=== PATIENT | male | born 1995 | race Caucasian/White ===

== ENCOUNTER → 2021-05-04 00:08 | Outpatient (CLI) | payer OTHER, SELFPAY ==
[2021-05-04 16:46] LABS: SARS-CoV-2 RNA PCR Positive
== END ==
PROVIDERS: PCP Internal Medicine; Visit Provider Physician Assistant
DX: U07.1 COVID-19 (principal)
CPT/HCPCS: C9803; U0003; U0005

== ENCOUNTER 2021-10-14 10:08 | Outpatient (CLI) | payer OTHER, SELFPAY | END 2021-10-14 10:09 | disposition home or self-care (01) | LOC: ANHLAB 10:10 | PROVIDERS: PCP Internal Medicine; Visit Provider Internal Medicine | DX: J02.9 Acute pharyngitis, unspecified (principal) | CPT/HCPCS: 87070 ==

== ENCOUNTER 2022-07-25 11:31 | Emergency (ER) | payer OTHER, SELFPAY ==
[2022-07-25] VITALS (31 sets, daily range): BP systolic 133–150; BP diastolic 74–100; PULSE 73–113; RESP 13–22; TEMP 36.8; O2SAT 96–100
--- NOTE | ~2022-07-25 | XR_ITS ---
EXAMINATION: XR shoulder RT min 2V DATE: 07/25/2022 14:17 INDICATION: Right shoulder pain. TECHNIQUE: 4 views of right shoulder were obtained. COMPARISON: None. FINDINGS: Bone alignment is normal. No fracture. Joint spaces are normal. IMPRESSION: 1. Normal right shoulder. Reviewed, dictated and finalized at location E. IMPRESSION: 1. Normal right shoulder.
--- NOTE | ~2022-07-25 | US_ITS ---
EXAMINATION: US venous doppler UE RT DATE: 07/25/2022 13:27 INDICATION: Swelling and discoloration TECHNIQUE: Barros scale images with and without compression and Doppler images of the right upper extre mity veins were obtained. COMPARISON: None. FINDINGS: The right internal jugular vein, brachial veins, basilic vein, cephalic vein, radial vein, and ulnar vein are patent. There is deep venous thrombosis of the right subclavian and axillary veins. IMPRESSION: 1. Deep venous thrombosis of the right subclavian and axillary veins. Reviewed, dictated and finalized at location B.
[2022-07-25 13:17] LABS: Basophils Percent Auto 0.2 % (0.2-1.2); Eosinophils Percent Auto 0.4 % (0-4.4); Hematocrit 47.4 % (42.0-52.0); Hemoglobin 16.4 g/dL (14.0-18.0); Immature Granulocyte Absolute 0.04 K/mm3 (0.00-0.031); Immature Granulocyte Percent A 0.4 % (0-0.5); Lymphocytes Absolute Auto 1.36 K/mm3 (0.9-3.2); Lymphocytes Percent Auto 13.7 % (18.3-44.2); Mean Corpuscular HGB Conc 34.6 g/dl (32-36); Mean Corpuscular Volume 92.4 fl (80-100); Mean Platelet Volume 10.3 fl (7.4-10.4); Monocytes Absolute Auto 0.8 K/mm3 (0.1-0.6); Monocytes Percent Auto 8.3 % (2.6-8.5); Neutrophils Absolute Auto 7.6 K/mm3 (1.3-6.7); Platelet Count Result 304 k/mm3 (150-375); Red Blood Count 5.13 M/mm3 (4.6-6.20); White Blood Count 9.9 K/mm3 (4.5-10.0)
[2022-07-25 13:20] LABS: Alanine Aminotransferase 67 U/L (6-50); Albumin Level 5.1 g/dL (3.5-5.1); Alkaline Phosphatase 66 U/L (38-126); Anion Gap 9 mmol/L (8-16); Aspartate Amino Transferase 57 U/L (17-59); Bilirubin,Total 0.8 mg/dL (0.2-1.3); Blood Urea Nitrogen 13 mg/dL (9-20); Calcium 9.8 mg/dL (8.4-10.2); Carbon Dioxide 29 mmol/L (22-30); Chloride 102 mmol/L (98-107); Creatine Kinase 294 U/L (55-170); Estimated CRCL calculation 90 ml/min; Estimated Glomerular Filt Rate > 60; Glucose 96 mg/dL (65-110); Potassium 4.6 mmol/L (3.4-5.0); Sodium 140 mmol/L (137-145)
[2022-07-25 13:31] LABS: Partial Thromboplastin Time 29.7 SECONDS (22.3-36.8)
--- NOTE | 2022-07-25 14:16 | ED.UPPEXIN ---
HPI - Extremity Injury (Upper) General Chief Complaint: Extremity Injury, Upper Stated Complaint: right arm pain Time Seen by Provider: 07/25/22 12:08 Source: patient and RN notes reviewed Mode of arrival: ambulatory Limitations: no limitations History of Present Illness HPI narrative: This is a 27 year old male who presents for evaluation of right arm swelling. Patient states yesterday he played golf and he also played in softball game. He noticed during his softball game that his right arm felt tight and swollen. He also noticed bluish discoloration to his right arm. He also has mild right anterior shoulder pain with internal rotation at his shoulder. He also notes tingling to right elbow with internal rotations. He denies history of DVT or PE. He does takes supplementation called Alpha Male that has testosterone in ingredients. Related Data Allergies Allergy/AdvReac Type Severity Reaction Status Date / Time cefprozil Allergy Mild Rash Verified 07/25/22 11:54 Review of Systems Constitutional: Constitutional: Denies weakness Cardiovascular: Cardiovascular: Denies syncope, Denies rapid heart rate, Denies irregular heart rhythm, Denies leg edema and Denies dyspnea Respiratory: Respiratory: Denies chest congestion, Denies hemoptysis, Denies excessive phlegm production and Denies dyspnea Gastrointestinal: Gastrointestinal: Denies abdominal pain, Denies hematochezia, Denies diarrhea and Denies vomiting Genitourinary: Genitourinary: Denies hematuria, Denies dysuria, Denies penile discharge and Denies testicular pain Musculoskeletal: Musculoskeletal: Denies joint swelling, Denies loss of height and Denies muscle weakness Neurologic: Denies syncope, Denies focal weakness, Reports numbness and Denies weakness [facility] Past Medical History Medical History Hx of anxiety disorder Surgical History Surgical History Hx of knee surgery Family History Family History Mother Family history of malignant neoplasm of breast in first degree relative Father Patient's father is Sibling Hypertension Other Diabetes mellitus Social History Social History Smoking status: Never smoker Second hand tobacco smoke exposure: Yes Alcohol intake: current Alcohol use details: social Substance use: never Exam Const: General: no acute distress and alert Nutritional Appearance: well nourished Orientation/consciousness: patient oriented x3 Limitations: no limitations HENMT: Head: normal to inspection Eyes: EOM: EOMs intact bilaterally Neck: Neck: normal visual inspection Chest: Chest palpation & inspection: normal inspection of the chest Resp: Effort & Inspection: normal respiratory effort Auscultation: clear to auscultation bilaterally Cardio: Rate: regular rate Rhythm: regular rhythm Heart sounds: no murmurs GI: GI Palp: Yes Soft to palpation, No Tenderness to palpation present (GI), No Guarding due to palpation present (GI) and No Rigid due to palpation Skin: Rashes: no rashes Wounds: no wounds Other: right upper extremity appears to have purplish discoloration compared to left; strong palpable radial pulse Neuro: General: patient oriented x3, moves all extremities and CN's II-XI intact bilaterally Extrem: Other: seek skin Psych: Mental Status: mental status grossly normal Affect: normal affect Attitude: cooperative Course Reevaluation(s) Reevaluation #1: I discussed with patient that he has been accepted to [facility]. I explained concern is the tingling that he has in his arm and discoloration so he needs vascular surgery evaluation . He agrees to transfer. Date: 07/25/22 Time: 14:45 Consultations Consultation #1: I spoke with Dr. Alvarado of vascular s
[2022-07-25] MEDS: ENOXAPARIN 100 MG/ML SYRINGE 90 MG SUB-Q (14:45)
--- NOTE | 2022-07-25 16:32 | PC.NURSE ---
pt accepted at [facility] placed on bed waitlist
--- NOTE | 2022-07-25 16:34 | PC.NURSE ---
spoke to [facility] transfer line, states no bed at this time. goal is to have a bed this evening or early in the morning. patient may eat per access line. Dr. Luis aware and ok for patient to eat. updated patient and family
--- NOTE | 2022-07-25 17:30 | PC.NURSE ---
patient c/o headache. provider aware. new orders received
[2022-07-25] MEDS: ACETAMINOPHEN 500 MG TABLET 1000 MG PO (17:43)
[2022-07-25] MEDS: ENOXAPARIN 100 MG/ML SYRINGE 87 MG SUB-Q (23:55)
[2022-07-26] VITALS (20 sets, daily range): BP systolic 130–140; BP diastolic 80–88; PULSE 62–98; RESP 11–19; O2SAT 95–100
== END 2022-07-26 11:55 | disposition short-term general hospital (02) ==
PROVIDERS: Emergency Provider General Practice; PCP Internal Medicine
DX: I82.621 Acute embolism and thrombosis of deep veins of right upper extremity (principal)
CPT/HCPCS: 36415; 73030; 80053; 82550; 85025; 85610; 85730; 93971; 96372; 99285; A9270; J1650

== ENCOUNTER 2022-12-10 08:15 | Outpatient (RCR) | payer OTHER, SELFPAY ==
--- NOTE | 2022-11-12 13:53 | PTOPEVAL1 ---
Assessment and note entered by Teofilo Norris Evaluation Information Assessment Status Evaluation Diagnosis thoracic outlet syndrome Subjective Information Pt. reports that he underwent surgery 09/12/22 for TOS. He reports that he did have immediate relief following surgery. He states that he still has a sense of tightness in the right shoulder. He states that he is on a 25# weight restriction. He reports that he has been informed to begin working out again, but to avoid chest exercise. 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 He states that he still has some numbness in the front of the right shoulder. He is right hand dominant. Pt. reprts that his goal is to regain normal right shoulder mobility and strength and return to duties as a police communications dispatcher. Reported Pain Level Pain Score 3: Self Report Assessment PT Clinical Summary Pt. is a 27 year old male who enters the clinic post removal of the first rib to address thoracic outlet syndrome. Pt. currently presents with u.e. weakness, impaired c-spine and u.e. ROM, impaired postural awareness and mild pain. He is currently limited to a 25# weight restriction. Continued skilled PT is indicated in order to improve these areas to allow the pt. to achieve his goal of returning to all work related duties. Plan of Care Interventions Electrical Stimulation,Hot Pack/Cold Pack,Manual Therapy,Neuro Re-education,Patient/Caregiver Educati,Therapeutic Activities,Therapeutic Exercise,Self-Care/Home Management PT Services Indicated Yes Treatment Frequency and 1x/week x 4 visits Duration These treatments will address the objective and functional deficits as defined above. The patient will be advanced safely and appropriately in order for the patient to progress towards his/her prior level of function. Additional exercises will be introduced and as well as a comprehensive home exercise program upon discharge, if needed, ?to ensure carryover of functional gains achieved in the clinic. This treatment plan has been reviewed and agreement upon by the patient.
--- NOTE | 2022-11-12 13:54 | OPREHPOC ---
Outpatient Therapy Plan of Care This is a Multidisciplinary Plan of Care that may contain components documented by all disciplines (PT, OT, and ST.) PT Problem 1 PT Problem #1 Knowledge Deficit PT Goal 1 Goal Independent with a HEP addressing ROM and strength . Target Visit 2 PT Problem 2 PT Problem #2 Impaired Strength PT Goal 1 Goal Pt. will present with 5/5 proximal right u.e. strength Target Visit 4 PT Problem 3 PT Problem #3 Impaired Range of Motion PT Goal 1 Goal Pt. will demonstrate 170 degees right shoulder flexion, 100 degrees right shoulder ER and 80 degrees right shoulder IR to assist with ease of completing IADL's. Target Visit 4 PT Problem 4 PT Problem #4 Impaired Functional Mobil PT Goal 1 Goal Pt. will to appropriate to return to all work related duties without restriction.
--- NOTE | 2022-12-10 09:08 | PTOPDC ---
Assessment and note entered by Toefilo Norris Evaluation Information Assessment Status Discharge Diagnosis thoracic outlet syndrome Subjective Information Pt. reports that pain is mild. He reports pain levels have been a 2/10 at worst, but he is pain free the majority of the time. He reports that he has been in the weight room doing resistive activity for the legs and light weight for the biceps and triceps. He still would like to be able to return to golf and anticipates that the doctor will let him after his next visit. Reported Pain Level Pain Score 0: Self Report Assessment PT Clinical Summary Pt. has met the majority of goals. He demonstrates no functional deficits and presents with normal strength and ROM on this date. At this time pt. has a comprehensive HEP. He returns to the doctor in less than 2 weeks. Anticipate pt. being released to no weight restriction and informed the pt. on how to transition back to u.e. resistive exercise in the weight room. He will be discharged from our care at this time. Plan of Care PT Services Indicated Yes
== END 2022-12-10 13:49 | disposition home or self-care (01) ==
LOC: ANHPT 08:15
PROVIDERS: PCP Internal Medicine
DX: G54.0 Brachial plexus disorders (principal)
CPT/HCPCS: 97110; 97112; 97140; 97161

== ENCOUNTER 2024-07-22 10:45 | Emergency (ER) | payer OTHER, SELFPAY ==
--- NOTE | ~2024-07-22 | XR_ITS ---
EXAMINATION: XR finger 4th RT min 2V DATE: 07/22/2024 11:01 INDICATION: Right fourth finger injury TECHNIQUE: Dorsal palmar, lateral and 2 oblique views of the right fourth digit were obtained COMPARISON: None FINDINGS: Mallet finger deformity of the right fourth digit with persistent flexion at the distal interphalange al joint. Alignment is otherwise normal. No fracture. Joint spaces are normal. IMPRESSION: 1. Mallet finger deformity of the fourth digit. No fracture. Reviewed, dictated and finalized at location A.
[2024-07-22 10:48] VITALS: BP 158/96; PULSE 102; RESP 18; TEMP 36.7; O2SAT 100
--- NOTE | 2024-07-22 10:55 | ED_ITS ---
HPI - Extremity Injury (Upper) General Chief Complaint: Extremity Injury, Upper Stated Complaint: finger injury Source: patient Mode of arrival: EMS Limitations: no limitations History of Present Illness HPI narrative: This is a 29 year old male that presents to the ER for right 4th finger injury. Reports he was apprehending a suspect and injured his finger. Reports decreased ROM in the right 4th finger DIP joint. Denies numbness. Related Data Home Medications ?Medication ?Instructions ?Recorded ?Confirmed ?Last Taken ?Type doxycycline hyclate 50 mg capsule 50 mg PO DAILY 02/18/24 Unknown History Allergies Allergy/AdvReac Type Severity Reaction Status Date / Time cefprozil Allergy Mild Rash Verified 07/22/24 10:47 Review of Systems Review of Systems: CONSTITUTIONAL: Denies fever MUSCULOSKELETAL: Reports joint pain, and myalgia. NEUROLOGIC: Denies numbness All systems reviewed & are unremarkable except as noted in HPI and below PMFSH Past Medical History Medical History (Updated 07/22/24 @ 11:40 by Hannah Cazares PA-C) Thoracic outlet syndrome Esophageal reflux disease Hx of anxiety disorder Surgical History Surgical History Hx of knee surgery Family History Family History Mother Family history of malignant neoplasm of breast in first degree relative Father Patient's father is Sibling Hypertension Other Diabetes mellitus Social History Social History (Updated 02/18/24 @ 09:38 by Antwon Caraballo APRN) Smoking status: Never smoker Second hand tobacco smoke exposure: Yes Alcohol intake: current Alcohol use details: social Substance use: never Living arrangements: with roommate(s) Occupation/Education: occupation Additional occupation/education comments: [place] [employer] Gender identity (if verbalized by the patient): Male Sexual Orientation (if Verbalized by the Patient): Straight or Heterosexual Exam Narrative: GENERAL: Well-appearing, well-nourished, and in no acute distress. HEAD: Normocephalic, atraumatic. EYES: EOMI. EXTREMITIES: Decreased active range of motion in the right 4th finger DIP joint. Normal radial pulse. Normal sensation SKIN: Warm, dry, no rash. NEURO: No focal deficits. Alert and oriented x3. PSYCH: Normal mood and affect Course Vital Signs Vital signs: Vital Signs Temperature 98.1 F 07/22/24 10:48 Pulse Rate 102 H 07/22/24 10:48 Respiratory Rate 18 07/22/24 10:48 Blood Pressure 158/96 H 07/22/24 10:48 Pulse Oximetry 100 07/22/24 10:48 Oxygen Delivery Room Air 07/22/24 10:48 Temperature 98.1 F 07/22/24 10:48 Pulse Rate 102 H 07/22/24 10:48 Respiratory Rate 18 07/22/24 10:48 Blood Pressure 158/96 H 07/22/24 10:48 Pulse Oximetry 100 07/22/24 10:48 Oxygen Delivery Room Air 07/22/24 10:48 Procedures Orthopedic Splinting/Casting Injury #1: Splinting/Casting Date: 07/22/24 Splinting/Casting Time: 11:38 Side: right Upper Extremity Injury Location: finger Upper Extremity Immobilizer: finger (other) Splint: prefabricated Pre-Formed: metal foam finger splint Pre-Procedure Neuro Vascular Exam: normal Post-Procedure Neuro Vascular Exam: normal MDM - Extremity Injury (Upper) MDM Narrative Medical decision making narrative: Patient presents to the emergency department for right 4th finger injury. He is neurovascularly intact. X-ray shows a mallet finger deformity. Patient placed in a splint. Will be given follow-up with Hand surgery. He was given warnings to return to the ER Differential Diagnosis Differential diagnosis: Likely finger sprain, dislocation of finger and other (Finger fracture) Imaging Data Radiologist's impression: ITS Impressions Finger X-Ray 07/22/24 11:19 IMPRESSION: 1. Mallet finger deformity of the fourth digit. No fracture. Critical Care Time Critical Care Time Critical Care Time: No Discharge Plan Discharge Clinical Impression: Mallet deformity of right ring finger Patient Disposition: Home Condition: Stable Instructions: Jammed Finger (ED) Additional Instructions: Return to the ER if you experience fever, redness and swelling of your arm, weakness, numbness, or any other symptoms that are concerning to you Rest, use ice/heat, take anti-inflammatories (Aleve, Ibuprofen, Naproxen, etc) or Tylenol as needed for pain. Wear your splint Follow up with hand surgery Patient Language: Jamaican Prescriptions: No Action doxycycline hyclate 50 mg capsule 50 mg PO DAILY omeprazole 20 mg capsule,delayed release(DR/EC) 20 mg PO DAILY Qty: 90 1RF venlafaxine 37.5 mg capsule,extended release 24hr 37.5 mg PO DAILY Qty: 90 1RF (DME) Monoject Safety Syringes 3 mL 21 gauge x 1 1/2 syringe See Rx Instructions .Route Qty: 15 2RF Rx Instructions: Use for testosterone injections Viberzi 100 mg tablet 100 mg PO BID Qty: 60 3RF Rx Instructions: must administer with a meal/food testosterone cypionate [Depo-Testosterone] 200 mg/mL oil 200 mg IM .every two weeks Qty: 10 0RF Rx Instructions: as a single dose Follow-up/Referrals: Avila Crook MD [Physician] - Maggie,Bryn Tiwari DO [Primary Care Provider] -
--- OUTSIDE RECORDS SUMMARY | 2024-07-22 11:47 | XMS_ITS | Encounter Summary ---
Author Organization [facility] Healthcare Address [address] [place] [address] Care Team Providers Care Production Control Supervisor Name Role Phone Angel Luis Alvarado MD Unavailable [phone] Maikel Plata DPT Unavailable [phone] Unknown, Notinfile Primary Care Provider Unavail able Encounter Details Date Type Department Care Team (Late st Contact Info) Description 05/02/2024 Telephone [facility] Radiology [address] [place] [address] Karen Hillman RN Social History Tobacco Use Types Packs/Day Years Used Date Smoking Tobacco: Never Passive Smoke Exposure: Never Smokeless Tobacco: Former Chew Quit: 2020 AUDIT-C Answer Date Recorded Q1: How often do you have a drink containing alc ohol? 2-4 times a month 05/06/2024 Q2: How many drinks containi ng alcohol do you have on a typical day when you are drinking? 1 or 2 05/06/2024 Q3: How often do you have si x or more drinks on one occasion? Never 05/06/2024 Personal Safety Answer Date Recorded Have you ever been in or are you currently in a harmful physical or emotional relationship or is someone making you feel afraid or unsafe? Denies 05/06/2024 Sex and Gender Information Value Date Recorded Sex Assigned at Not on file Legal Sex Male 1:28 AM [employer]POR[employer] Gender Identity Not on file Sexual Orientation Not on file documented as of this encounter Plan of Treatment Not on file documented as of this encounter Visit Diagnoses Not on filedocumented in this encounter Care Teams Production Control Supervisor Relationship Specialty Start Date End Date Unknown, Notinfile PCP - General 04/20/24 Angel Luis Alvarado MD [id number] [place] [address] Surgeon Vascular Surgery 07/29/22 Maikel Plata DPT [address] [facility] [address] [place] [address] Physical Therapist Physical Therapy 11/09/22 documented as of this encounter
--- OUTSIDE RECORDS SUMMARY | 2024-07-22 11:47 | XMS_ITS | Referral Summary ---
Author Organization [facility] Address [address] [place] [address] Care Team Providers Care Activities Aide Name Role Phone Angel Luis Alvarado MD Unavailable [phone] Maikel Plata DPT Unavailable [phone] Unknown, Notinfile Primary Care Provider Unavail able Encounters Date Type Department Care Team Description 07/18/2024 Orders Only [facility]iology [address] [place] [address] Tammi Ledbetter, SAYRA 07/18/2024 Orders Only [facility] [address] [place] [address] Tammi Ledbetter, SAYRA 07/15/2024 Telephone [facility] [address] [place] [address] Tammi Ledbetter, SAYRA 07/15/2024 Orders Only [facility] [address] [place] [address] Tammi Ledbetter, SAYRA 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 (Primary Dx) 06/01/2024 Telephone [facility] [address] [place] [address] Tammi Ledbetter, SAYRA 05/12/2024 Orders Only [facility] [address] [place] [address] Tammi Ledbetter, SAYRA 05/12/2024 Telephone [facility] [address] [place] [address] Tammi Ledbetter, SAYRA 05/09/2024 Telephone [facility] Radiology, Interventional Radiology [address] [facility] [address] [place] [address] Fifi Contreras, SAYRA Follow-up 05/06/2024 6:19 AM SHARE DAIRY FARMER - 05/06/2024 11:59 PM SHARE DAIRY FARMER Hospital Encounter [facility]iology [address] [place] [address] Raul Lara MD Karanikolas, Menelaos, MD Finders, James Kristopher, CRNA TOS (thoracic outlet syndrome) Discharge Disposition: Discharge to home or self care 05/06/2024 7:45 AM SHARE DAIRY FARMER Anesthesia Event [facility] [address] [place] [address] Abby Bowman MD McGowan, Jessica Lynn, DEBBIE 05/04/2024 Telephone [facility] [address] [place] [address] Damaso Hummel, SAYRA 05/04/2024 Telephone [facility] [address] [place] [address] Damaso Hummel, SAYRA 05/02/2024 Telephone [facility] [address] [place] [address] Karen Hillman, SAYRA 04/27/2024 10:00 AM SHARE DAIRY FARMER Pre-Admission Testing [facility]) [address] [place] [id number] 04/26/2024 Telephone [facility] [address] [place] [id number] Tammi Ledbetter RN from Last 3 Months Allergies Active Allergy Reactions Criticality Noted Date Comments Cefprozil Rash Medium 07/28/2022 Per pt reaction as a child Medications venlafaxine (EFFEXOR) 37.5 mg tabletIndicatio ns:Generalized Anxiety Disorder Take 1 tablet (37.5 mg total) by mouth every morning Active omeprazole (PriLOSEC) 20 mg capsuleIndicati ons:Treatment of Non-Bleeding Gastric Disorder Take 1 capsule (20 mg total) by mouth every morning Active ibuprofen 200 mg tab/capIndicati ons:Anti-inflam matory Take 2 tablet/capsule (400 mg total) by mouth every 6 (six) hours as needed for pain Active multivitamin capsuleIndicati ons:Vitamin Deficiency Prevention Take 1 capsule by mouth daily before breakfast Active cetirizine (ZyrTEC) 10 mg tabletIndicatio ns:Seasonal Allergic Rhinitis Take 1 tablet (10 mg total) by mouth every morning Active cyanocobalamin, vitamin B-12, (VITAMIN B-12 ORAL)Indication s:supplement Take 1 tablet by mouth every morning Active eluxadoline (VIBERZI) 100 mg tabletIndicatio ns:Diarrhea Predominant Irritable Bowel Syndrome Take 1 tablet (100 mg total) by mouth 2 (two) times a day Active doxycycline hyclate (VIBRAMYCIN) 50 mg capsuleIndicati ons:Other (complete free text reason below),dry eye/infection Take 1 capsule (50 mg total) by mouth 2 (two) times a day Active testosterone cypionate (DEPO-TESTOTERO NE) 200 mg/mL injectionIndica tions:hrt Inject 1 mL (200 mg total) into the muscle as instructed every 14 (fourteen) days 5 Active clopidogreL (PLAVIX) 75 mg tablet Take 1 tablet (75 mg total) by mouth daily 30 tablet 11 5 07/19/19 26 Active apixaban (ELIQUIS) 5 mg tablet Take 1 tablet (5 mg total) by mouth 2 (two) times a day 60 tablet 3 5 07/19/19 25 Discontin ued(Alter keegan therapy) Active Problems Problem Noted Date Diagnosed Date TOS (thoracic outlet syndrome) 01/06/2023 Tachycardia 09/13/2022 Assessment & Plan (09/15/2022 6:31 AM CDT): - Noted during OR case and post-op - Resolved w/ IVF Thoracic outlet syndrome 09/12/2022 Anxiety 07/26/2022 Overview (07/26/2022): -Re-start home venlafaxine Assessment & Plan (09/12/2022 8:11 AM CDT): - continue home meds as able Assessment & Plan (07/26/2022 2:15 PM CDT): -Restart home venlafaxine GERD (gastroesophageal reflux disease) Overview (07/26/2022): -Restart home omeprazole Assessment & Plan (09/12/2022 8:11 AM CDT): - Continue home medications Assessment & Plan (07/26/2022 2:15 PM CDT): -Restart home omeprazole Venous thoracic outlet syndrome of right subclav denise vein 07/25/2022 Assessment & Plan (09/15/2022 6:30 AM CDT): - 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 S/p nutrition consult for diet instructions. - Heparin per protocol POD3, eventually home NOAC as surgical recovery permits Assessment & Plan (07/29/2022 5:53 AM CDT): Presented to OSH with right arm tightness, swelling and discoloration. Also noted tingling from wrist down. Palpable pulse. Ultrasound positive for right axially and subclavian DVT. - 07/28 ultrasound confirmed Acute deep vein thrombosis in the right upper extremity. - IR consult for thrombectomy +/- lysis. - To IR suite 07/28 for RUE venogram with thrombectomy and thrombolysis - Continue therapeutic anticoagulation (heparin gtt). Ponce check NOACs. Xarelto PA obtained. - NV exam. - Elevate right arm. Social History Tobacco Use Types Packs/Day Years Used Date Smoking Tobacco: Never Passive Smoke Exposure: Never Smokeless Tobacco: Former Chew Quit: 2019 Tobacco Cessation:Counseling Given: Not Answered AUDIT-C Answer Date Recorded Q1: How often [...] on file Legal Sex Male 1:28 AM SHARE DAIRY FARMER Gender Identity Not on file Sexual Orientation Not on file Last Filed Vital Signs Vital Sign Reading Time Taken Comments Blood Pressure 109/71 05/06/2024 11:00 AM SHARE DAIRY FARMER Pulse 82 05/06/2024 11:05 AM SHARE DAIRY FARMER Temperature 36.1 C (97 F) 05/06/2024 11:00 AM SHARE DAIRY FARMER Respiratory Rate 13 05/06/2024 11:05 AM SHARE DAIRY FARMER Oxygen Saturation 100% 05/06/2024 11:05 AM SHARE DAIRY FARMER Inhaled Oxygen Concentration - - Weight 93 kg (205 lb) 05/06/2024 6:40 AM SHARE DAIRY FARMER Height 182.9 cm (6') 05/06/2024 6:40 AM SHARE DAIRY FARMER Body Mass Index 27.8 05/06/2024 6:40 AM SHARE DAIRY FARMER Plan of Treatment Not on file Procedures Procedure Name Priority Date/Time Associated Diagnosis Comments VENOGRAM UPPER EXTREMITY RIGHT Schedule Routine, Read Routine (OP Routine) 05/06/2024 10:11 AM SHARE DAIRY FARMER TOS (thoracic outlet syndrome) IN AN PROCEDURE PLACEHOLDER Routine 05/06/2024 8:18 AM SHARE DAIRY FARMER IN AN ELECTIVE ENDOTRACHEAL AIRWAY Routine 05/06/2024 8:18 AM SHARE DAIRY FARMER from Last 3 Months Results * IR Venogram Upper Extremity Right (05/06/2024 10:11 AM SHARE DAIRY FARMER) Anatomical Region Laterality Modality Extremity Right X-Ray Angiograph y 05/06/2024 1:39 PM SHARE DAIRY FARMER Impressions 05/06/2024 2:22 PM SHARE DAIRY FARMER Occluded right axillary and subclavian veins successfully treated with balloon venoplasty with significant improvement. PLAN: The patient will resume home Lovenox for the following week and will be reevaluated for transition Eliquis. He will follow-up with interventional radiology clinic in 3 months. Dictated by: Syed Stanton M.D. The radiology attending physician has personally reviewed this study, and had reviewed and/or edited this written report and agrees with it. Electronically signed by: Raul Lara M.D. Narrative 05/06/2024 2:22 PM SHARE DAIRY FARMER EXAMINATION: 1. ULTRASOUND-GUIDED RIGHT BASILIC VEIN ACCESS. 2. RIGHT UPPER EXTREMITY AND CENTRAL VENOGRAM. 3. RIGHT UPPER EXTREMITY AND CENTRAL BALLOON VENOPLASTY. 4. RIGHT SUBCLAVIAN VEIN DRUG COATED BALLOON VENOPLASTY. HISTORY/INDICATION: 29 year old male with venous thoracic outlet syndrome status post decompression 09/12/2022 (including anterior/middle scalenectomy, brachial plexus neurolysis, first rib resection). He underwent several post-decompression venograms with balloon angioplasty and drug coated balloon angioplasty. 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 ATTENDING PRESENCE: Raul Lara M.D., the attending interventional radiologist was present from the beginning to the end of the procedure. SEDATION: The procedure was done under general anesthesia. TECHNIQUE: The risks, benefits and alternatives were discussed and informed consent was obtained. Prior to beginning the procedure, [place] Protocol was performed to confirm the patient's identity and the planned procedure. For procedures that utilize fluoroscopy, the fluoroscopy time has been recorded in the electronic medical record. Maximum sterile barriers including cap, mask, hand hygiene, sterile gloves, sterile gown, large sterile drape and 2% chlorhexidine for cutaneous antisepsis were used. The skin over the right neck and groin was sterilely prepped, draped and infiltrated with 1% lidocaine. Prior to the procedure, the right basilic vein was evaluated by ultrasound, an image of the vessel recorded, and this image placed in the patient's chart. The vessel was occluded prior to the procedure. After sterile prep, this vessel was accessed using realtime ultrasound guidance. A 6-Scottish vascular sheath was placed and a venogram was performed. The chronically occluded right axillary and subclavian vein was traversed with a Glidewire and Kumpe catheter and positioned in the superior vena cava. The wire was removed and a venogram was performed. The catheter was exchanged over the wire for an 8 mm plain balloon. Balloon venoplasty of the right axillary, subclavian, and brachiocephalic veins was performed using an 8, 10, and 12 mm balloon. Drug coated balloon angioplasty of the right subclavian vein was performed with a 12 mm Lutonix balloon. Post-intervention venography was performed. All wires, catheters, and sheaths were removed. Hemostasis was achieved with manual compression. The skin dermatotomy was closed with sutures and Dermabond. A sterile dressing was applied. ESTIMATED BLOOD LOSS: Minimal. COMPLICATIONS: None. CONDITION: Stable. DISCHARGED TO: Outpatient recovery then home. FINDINGS: Initial ultrasound images demonstrate an occluded right basilic vein. Initial venography demonstrates an occluded right axillary and subclavian vein with filling of numerous venous collaterals and a prominent venous collateral descending caudally along the right chest wall, draining into the superior vena cava. Images that follow demonstrate traversal of a guidewire and catheter across the occluded right axillary and subclavian veins with serial balloon venoplasty of these veins. Final post-intervention venography demonstrates brisk in-line flow of contrast through the right axillary, subclavian, and brachiocephalic veins with emptying into the superior vena cava. There is significantly improved caliber of these veins and decreased filling of the previously seen venous collaterals. Procedure Note Raul Lara MD - 05/06/2024 EXAMINATION: 1. ULTRASOUND-GUIDED RIGHT BASILIC VEIN ACCESS. 2. RIGHT UPPER EXTREMITY AND CENTRAL VENOGRAM. 3. RIGHT UPPER EXTREMITY AND CENTRAL BALLOON VENOPLASTY. 4. RIGHT SUBCLAVIAN VEIN DRUG COATED BALLOON VENOPLASTY. HISTORY/INDICATION: 29 year old male with venous thoracic outlet syndrome status post decompression 09/12/2022 (including anterior/middle scalenectomy, brachial plexus neurolysis, first rib resection). He underwent several post-decompression venograms with balloon angioplasty and drug coated balloon angioplasty. 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 ATTENDING PRESENCE: Raul Lara M.D., the attending interventional radiologist was present from the beginning to the end of the procedure. SEDATION: The procedure was done under general anesthesia. TECHNIQUE: The risks, benefits and alternatives were discussed and informed consent was obtained. Prior to beginning the procedure, [place] Protocol was performed to confirm the patient's identity and the planned procedure. For procedures that utilize fluoroscopy, the fluoroscopy time has been recorded in the electronic medical record. Maximum sterile barriers including cap, mask, hand hygiene, sterile gloves, sterile gown, large sterile drape and 2% chlorhexidine for cutaneous antisepsis were used. The skin over the right neck and groin was sterilely prepped, draped and infiltrated with 1% lidocaine. Prior to the procedure, the right basilic vein was evaluated by ultrasound, an image of the vessel recorded, and this image placed in the patient's chart. The vessel was occluded prior to the procedure. After sterile prep, this vessel was accessed using realtime ultrasound guidance. A 6-Scottish vascular sheath was placed and a venogram was performed. The chronically occluded right axillary and subclavian vein was traversed with a Glidewire and Kumpe catheter and positioned in the superior vena cava. The wire was removed and a venogram was performed. The catheter was exchanged over the wire for an 8 mm plain balloon. Balloon venoplasty of the right axillary, subclavian, and brachiocephalic veins was performed using an 8, 10, and 12 mm balloon. Drug coated balloon angioplasty of the right subclavian vein was performed with a 12 mm Lutonix balloon. Post-intervention venography was performed. All wires, catheters, and sheaths were removed. Hemostasis was achieved with manual compression. The skin dermatotomy was closed with sutures and Dermabond. A sterile dressing was applied. ESTIMATED BLOOD LOSS: Minimal. COMPLICATIONS: None. CONDITION: Stable. DISCHARGED TO: Outpatient recovery then home. FINDINGS: Initial ultrasound images demonstrate an occluded right basilic vein. Initial venography demonstrates an occluded right axillary and subclavian vein with filling of numerous venous collaterals and a prominent venous collateral descending caudally along the right chest wall, draining into the superior vena cava. Images that follow demonstrate traversal of a guidewire and catheter across the occluded right axillary and subclavian veins with serial balloon venoplasty of these veins. Final post-intervention venography demonstrates brisk in-line flow of contrast through the right axillary, subclavian, and brachiocephalic veins with emptying into the superior vena cava. There is significantly improved caliber of these veins and decreased filling of the previously seen venous collaterals. IMPRESSION: Occluded right axillary and subclavian veins successfully treated with balloon venoplasty with significant improvement. PLAN: The patient will resume home Lovenox for the following week and will be reevaluated for transition Eliquis. He will follow-up with interventional radiology clinic in 3 months. Dictated by: Syed Stanton M.D. The radiology attending physician has personally reviewed this study, and had reviewed and/or edited this written report and agrees with it. Electronically signed by: Raul Lara M.D. us Raul Lara MD IMG IR PROCEDURES Final Re sult * IN AN ELECTIVE ENDOTRACHEAL AIRWAY, IN AN PROCEDURE PLACEHOLDER (05/06/2024 8:18 AM SHARE DAIRY FARMER) Narrative Eduin Bill CRNA - 05/06/2024 8:18 AM SHARE DAIRY FARMER Eduin Bill CRNA 05/06/2024 8:19 AM Airway Patient location: OR Urgency: elective Date/time: 05/06/2024 8:06 AM Indications for airway management: anesthesia Difficult airway: no Staff: Supervising provider: Abby Bowman MD Placed by: LOCUM TENENS PSYCHIATRIST: Eduin Bill CRNA Emergent airway documentation: Risks and benefits discussed: yes Consent obtained: yes Consent given by: patient Airway prep: Preoxygenated: yes Patient position: reverse Trendelenburg Mask difficulty assessment: 0 - not attempted Spontaneous ventilation during airway: absent Sedation level during airway: GA Final airway details: Final airway type: endotracheal airway Tube type: ETT ETT size: 8.0 mm Cuffed: yes Technique used for successful ETT placement: video laryngoscopy Devices/Methods used in placement: stylet Insertion site: oral Video blade type: Coleman Blade size: 3 Cormack-Lehane (video): grade I - full view of glottis Initial cuff pressure: 26 cm H2O Cuff volume: 8 mL Cuff inflated with: air ETT to lips: 24 cm Placement verified by: auscultation and CO2 detection Airway secured with: silk tape Number of attempts: 1 Abby Bowman MD ANESTHESIA ORDERABLES Fi nal Result from Last 3 Months Insurance [facility] Address: [place] [address] [facility] Address: [place] [address] [facility] Address: [facility] [address] [place] [address] Advance Directives For more information, please contact: [phone] * Full Code (Latest Code Status on File) Date Activated Date Inactivated Comments 05/06/2024 6:37 AM 05/07/2024 4:45 AM * Full Code Date Activated Date Inactivated Comments 09/12/2022 9:49 PM 09/16/2022 5:04 PM * Full Code Date Activated Date Inactivated Comments 07/26/2022 1:27 PM 07/29/2022 5:50 PM Care Teams Activities Aide Relationship Specialty Start Date End Date Unknown, Notinfile PCP - General 04/20/24 Angel Luis Alvarado MD [id number] [place] [address] Surgeon Vascular Surgery 07/29/22 Maikel Plata DPT [address] [address] Physical Therapist Physical Therapy 11/09/22
--- OUTSIDE RECORDS SUMMARY | 2024-07-22 11:47 | XMS_ITS | Encounter Summary ---
Author Organization 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 2-4 times a month 05/06/2024 6:38 AM Giovanna Scott RN Q2: How many drinks containing alcohol do you have on a typical day when you are drinking? 1 or 2 05/06/2024 6:38 AM Giovanna Scott RN Q3: How often do you have six or more drinks on one occasion? Never 05/06/2024 6:38 AM Giovanna Scott RN documented as of this encounter Miscellaneous Notes * Telephone Encounter - Damaso Hummel RN - 05/04/2024 11:37 AM COMPOUNDING TECHNICIAN OUNDING TECHNICIAN documented in this encounter Plan of Treatment Not on file documented as of this encounter Visit Diagnoses Not on filedocumented in this encounter Care Teams Professor Of Literacy Relationship Specialty Start Date End Date Unknown, Notinfile PCP - General 04/20/24 Angel Luis Alvarado MD [id number] [place] [address] Surgeon Vascular Surgery 07/29/22 Maikel Plata DPT [id number] [address] Physical Therapist Physical Therapy 11/09/22 documented as of this encounter
--- OUTSIDE RECORDS SUMMARY | 2024-07-22 11:47 | XMS_ITS | Clinical Summary ---
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 - Elevate right arm. Encounters Date Type Department Care Team Description 07/18/2024 Orders Only [facility] Radiology [address] [place] [address] Tammi Ledbetter RN 07/18/2024 Orders Only [facility] [address] [place] [address] Tammi Ledbetter RN 07/15/2024 Telephone [facility] [address] [place] [address] Tammi Ledbetter RN 07/15/2024 Orders Only [facility] [address] [place] [address] Tammi Ledbetter, SAYRA 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 (Primary Dx) 06/01/2024 Telephone [facility] [address] [place] [address] Tammi Ledbetter RN 05/12/2024 Orders Only [facility] [address] [place] [address] Tammi Ledbetter, SAYRA 05/12/2024 Telephone [facility] [address] [place] [address] Tammi Ledbetter, SAYRA 05/09/2024 Telephone [facility] Radiology, Interventional Radiology [address] [place] [address] Fifi Contreras, SAYRA Follow-up 05/06/2024 7:45 AM SOFTWARE DEVELOPER INTERN Anesthesia Event [facility] [address] [place] [id number] Abby Bowman MD McGowan, Giovanna Mendiola NP 05/06/2024 6:19 AM SOFTWARE DEVELOPER INTERN - 05/06/2024 11:59 PM SOFTWARE DEVELOPER INTERN Hospital Encounter [facility] [address] [place] [phone] Raul Lara MD Karanikolas, Menelaos, MD Finders, James Kristopher, CRNA TOS (thoracic outlet syndrome) Discharge Disposition: Discharge to home or self care 05/04/2024 Telephone [facility] [address] [place] [phone] Damaso Hummel, SAYRA 05/04/2024 Telephone [facility] [address] [place] [phone] Damaso Hummel, SAYRA 05/02/2024 Telephone [facility] [address] [place] [id number] Karen Hillman, SAYRA 04/27/2024 10:00 AM SOFTWARE DEVELOPER INTERN Pre-Admission Testing [facility] [address] [place] [id number] 04/26/2024 Telephone [facility] [address] [place] [id number] Tammi Ledbetter RN from Last 3 Months Surgical History Surgery Date Site/Laterality Comments SKIN GRAFT 03/16/2000 - 03/15/2001 Right Right shoulder 2/2 espinosa WISDOM TOOTH EXTRACTION 03/16/2016 - 03/15/2017 ABCESS DRAINAGE 03/16/2001 - 03/15/2002 Right VENOUS THROMBECTOMY 07/28/2022 Right THORACIC OUTLET SURGERY 09/12/2022 Right OTHER SURGICAL HISTORY 12/25/2022 Right venogram, angioplasty-venoplasty subclavian Medical History Medical History Date Comments Thoracic outlet syndrome Right V enous Thoracic outlet syndrome s/p thrombectomy 07/28/2022 History of DVT (deep vein thrombosis) 07/2022 DVT in the right subclavian and axillary veins s/p thrombectomy 07/28/2022 Family History Medical History Relation Name Comments PONV Mother Relation Name Status Comments Mother Social History Tobacco Use Types Packs/Day Years [...] on file Legal Sex Male 1:28 AM SOFTWARE DEVELOPER INTERN Gender Identity Not on file Sexual Orientation Not on file Obstetrics History Last Filed Vital Signs Vital Sign Reading Time Taken Comments Blood Pressure 109/71 05/06/2024 11:00 AM SOFTWARE DEVELOPER INTERN Pulse 82 05/06/2024 11:05 AM SOFTWARE DEVELOPER INTERN Temperature 36.1 C (97 F) 05/06/2024 11:00 AM SOFTWARE DEVELOPER INTERN Respiratory Rate 13 05/06/2024 11:05 AM SOFTWARE DEVELOPER INTERN Oxygen Saturation 100% 05/06/2024 11:05 AM SOFTWARE DEVELOPER INTERN Inhaled Oxygen Concentration - - Weight 93 kg (205 lb) 05/06/2024 6:40 AM SOFTWARE DEVELOPER INTERN Height 182.9 cm (6') 05/06/2024 6:40 AM SOFTWARE DEVELOPER INTERN Body Mass Index 27.8 05/06/2024 6:40 AM SOFTWARE DEVELOPER INTERN Plan of Treatment Health Maintenance Due Date Last Done Comments Depression Screening 1994 Hepatitis C Screening 1994 DTaP/Tdap/Td Vaccine (1 - Tdap) 2005 Varicella Vaccines (1 of 2 - 13+ 2-dose series) 2007 Hepatitis B Screening 2012 Regular Well Visit/Exam 18-64 2012 Influenza Vaccine (Season Ended) 2024 HPV Vaccines Aged Out No longer eligi ble based on patient's age to complete this topic Pneumococcal vaccine <65 Aged Out No longer eligible based on patient's age to complete this topic Procedures Procedure Name Priority Date/Time Associated Diagnosis Comments VENOGRAM UPPER EXTREMITY RIGHT Schedule Routine, Read Routine (OP Routine) 05/06/2024 10:11 AM SOFTWARE DEVELOPER INTERN TOS (thoracic outlet syndrome) MD AN PROCEDURE PLACEHOLDER Routine 05/06/2024 8:18 AM SOFTWARE DEVELOPER INTERN MD AN ELECTIVE ENDOTRACHEAL AIRWAY Routine 05/06/2024 8:18 AM SOFTWARE DEVELOPER INTERN from Last 3 Months Results * IR Venogram Upper Extremity Right (05/06/2024 10:11 AM SOFTWARE DEVELOPER INTERN) Anatomical Region Laterality Modality Extremity Right X-Ray Angiograph y 05/06/2024 1:39 PM SOFTWARE DEVELOPER INTERN Impressions 05/06/2024 2:22 PM SOFTWARE DEVELOPER INTERN Occluded right axillary and subclavian veins successfully [...] Raul Lara M.D. Narrative 05/06/2024 2:22 PM SOFTWARE DEVELOPER INTERN EXAMINATION: 1. ULTRASOUND-GUIDED RIGHT BASILIC VEIN ACCESS. [...] was obtained. Prior to beginning the procedure, [place] Protocol was performed to confirm the patient's [...] was accessed using realtime ultrasound guidance. A 6-Zimbabwean vascular sheath was placed and a venogram [...] was obtained. Prior to beginning the procedure, [place] Protocol was performed to confirm the patient's [...] was accessed using realtime ultrasound guidance. A 6-[place]an vascular sheath was placed and a venogram [...] it. Electronically signed by: Raul Lara M.D. Raul Lara MD IMG IR PROCEDURES Final Re sult * MD AN ELECTIVE ENDOTRACHEAL AIRWAY, MD AN PROCEDURE PLACEHOLDER (05/06/2024 8:18 AM SOFTWARE DEVELOPER INTERN) Narrative Eduin Bill CRNA - 05/06/2024 8:18 AM SOFTWARE DEVELOPER INTERN Eduin Bill CRNA 05/06/2024 8:19 AM Airway Patient location: OR Urgency: elective Date/time: 05/06/2024 8:06 AM Indications for airway management: anesthesia Difficult airway: no Staff: Supervising provider: Abby Bowman MD Placed by: RESTAURANT BARTENDER: Eduin Bill CRNA Emergent airway documentation: Risks [...] with: silk tape Number of attempts: 1 Result [facility] Abby Bowman MD ANESTHESIA ORDERABLES Fi nal Result from Last 3 Months Insurance CHOICE PLUS Advance Directives For more information, please contact: [phone] * Full Code (Latest Code Status on File) Date Activated Date Inactivated Comments 05/06/2024 6:37 AM 05/07/2024 4:45 AM * Full Code Date Activated Date Inactivated Comments 09/12/2022 9:49 PM 09/16/2022 5:04 PM * Full Code Date Activated Date Inactivated Comments 07/26/2022 1:27 PM 07/29/2022 5:50 PM Care Teams Domestic Helper Relationship Specialty Start Date End Date Unknown, Notinfile PCP - General 04/20/24 Angel Luis Alvarado MD [id number] [place] [address] Surgeon Vascular Surgery 07/29/22 Maikel Plata DPT [id number] [address] Physical Therapist Physical Therapy 11/09/22
[2024-07-22 12:14] VITALS: BP 138/84; PULSE 90; RESP 18; O2SAT 97
== END 2024-07-22 12:25 | disposition home or self-care (01) ==
PROVIDERS: Emergency Provider Physician Assistant; PCP Internal Medicine
DX: M20.011 Mallet finger of right finger(s) (principal); X58.XXXA Exposure to other specified factors, initial encounter
CPT/HCPCS: 29130; 73140; 99283